=== PATIENT | female | born 1980 | race Caucasian/White ===

== ENCOUNTER 2018-05-16 06:35 | Day surgery (SDC) | payer BC ==
[2018-05-09 14:48] LABS: BUN Blood Urea Nitrogen 9 mg/dL (7-18); Bicarbonate 26 mmol/L (21-32); Glucose Level 88 mg/dL (74-106); Potassium 3.6 mmol/L (3.5-5.1); Sodium Level 142 mmol/L (136-145)
[2018-05-09 14:52] LABS: Absolute Lymphocytes (CBC) 2.1 K/uL (0.7-4.9); Absolute Monocytes 0.6 K/uL (0.1-1.3); Absolute Neutrophil 4.9 K/uL (1.8-8.0); Basophils % 0.4 % (0-1.3); Eosinophils % 2.6 % (0-4.4); Hematocrit 36.3 % (36.0-45.0); Lymphocytes % 26.8 % (15.3-44.8); MCH 24.4 pg (27.0-35.0); MCV 73.6 fL (80-100); MPV 10.5 fL (7.6-11.3); Monocytes % 7.7 % (3.3-12.3); RBC Red Blood Cell Count 4.92 M/uL (3.86-4.86)
--- NOTE | 2018-05-15 15:43 | PREOPHP ---
Date of Admission: 05/09/2018 PODIATRIC HISTORY AND PHYSICAL History Of Present Illness: This patient presented to my office months ago with a chief complaint of pain underneath the right big toe joint. No history of trauma. The patient was diagnosed with a fr acture of the tibial sesamoid based on MRI findings and then later x-ray findings. The patient has u ndergone dispersion of the area, been in a walking boot for approximately 3 months, use of a bone sti mulator for approximately 3 months, all without relief of symptoms. Patient has also had a steroid i njection as a last resort, which gave no relief. The patient requests surgical management. Pain is at first MPJ right foot, tibial sesamoid, sore and throbbing in nature, moderate in severity. It beg an approximately a year ago. The pain is worse with activity, improved with rest. Medications: Include Duexis as needed and Actigall 300 mg. Allergies: ALLERGIES ARE TO LATEX, LEVAQUIN, PHENERGAN, VANCOMYCIN. Medical History: Unremarkable. Past Surgical History: Includes a laparoscopic cholecystectomy in 2006 and the name of the procedure is Veronica-en-Y; hepaticojejunostomy in 2006, 2013, and 2014 due to failure of the subsequent procedure s due to complications after gallbladder surgery. Family History: Includes heart disease and hypertension in her mother and father. Social History: Patient denies cigarettes and alcohol use and IV drug use. Physical Examination: Vital Signs: Patient is 165 pounds, height 5 feet 4 inches. General Appearance: The patient is healthy, well developed, well nourished, well oriented x3. Vascular: Evaluation reveals dorsalis pedis and posterior tibial pulses to be 4/4 bilaterally. Capi llary refill time is less than 3 seconds. Temperature gradient is within normal limits. There is no DVT or complaints or signs. Musculoskeletal Evaluation: Foot assessment, there is a rigid cavus foot type bilaterally, subtalar joint shows increased varus bilaterally and a forefoot adductus bilaterally. Equinus is noted to be -5 bilaterally. Digits are within normal limits on both feet. Muscle and knee assessment and testin g and ankle assessment reveals normal range of motion, equal and symmetrical bilaterally. Big toe kelli int evaluation reveals big toes in good alignment with minimal medial enlargement. There is no redne ss, swelling, or temp; however, there is mild tenderness on palpation of the tibial sesamoid, specifi chris plantar, right foot. Skin Evaluation: Reveals no rash, ulcer, tumor, or contracture. Neurologic Evaluation: Reveals deep tendon reflexes to be 5/5 for the patella and Achilles bilateral ly. Vibratory and sharp dull sensation within normal limits. Diagnosis: Tibial sesamoid fracture, right foot with a nonunion. X-ray evaluation shows a separatio n of the tibial sesamoid, not initially apparent on the original x-rays, and MRI results indicate a f racture of the tibial sesamoid. The patient has undergone conservative treatment including a BK walk er, dispersion padding, and a bone stimulator to try to heal the fractured sesamoid, all to no avail, and the patient is now ready for surgical management due to failure of conservative care. The patie nt is aware that they will be nonweightbearing for 2 weeks with crutches. A Roll-A-Bout was offered and patient declined. The patient will be in a walking boot after the 2-week nonweightbearing period for approximately for 4 weeks. The patient understands the risk of tendon damage and capsular damag e to the first MPJ and the risk of developing a bunion deformity having been stressed to the patient due to removal of the tibial sesamoid. The patient has also been told she will need to be off work f or approximately 6 weeks. Physical therapy was also discussed postoperatively for any stiffness in t he big toe joint. The patient understands risks, benefits, and alternatives to the above-mentioned p rocedure including but not limited to the risk of pain, swelling, numbness, stiffness, infection, non healing of skin along with prominence of the pain due to capsular adhesions and/or capsular damage. The patient requests surgical management. Preoperative labs have been performed. Medical H and P wi ll be completed by Anesthesia. Surgery is scheduled for May 16, 2018 at [facility]. JAY Voice ID: [id number]
--- OUTSIDE RECORDS SUMMARY | 2018-05-16 06:39 | XMS REPORT | Clinical Summary ---
:1980 Author Organization [facility] Address [address] [place] [address] Care Team Providers Name Role Phone AmenaBurciagaMelinda camarillo Primary Care Provider Zeus Selby Unavailable Allergies Active Allergy Reactions Severity Noted Date Comments Adhesive Rash Low 02/02/2014 Latex Rash Low 01/16/2014 Promethazine Anaphylaxis High 11/15/2013 Vancomycin Analogues Rash Low 02/25/2015 welps. Medications Medication Sig Dispensed Refills Start End Date Status Date pantoprazole (PROTONIX) Take 1 tablet (40 30 tablet 1 Active 40 MG tablet mg total) by mouth 5 daily. ursodiol (ACTIGALL) 300 Take 1 capsule (300 90 capsule 11 Active mg capsuleIndications: mg total) by mouth 7 Injury of bile duct, 3 (three) times subsequent encounter, daily. Elevated LFTs ursodiol (ACTIGALL) 500 Take 1 tablet (500 270 tablet 3 Active MG tabletIndications: mg total) by mouth 7 18 Elevated LFTs, Injury 3 (three) times of bile duct, daily. subsequent encounter IBUPROFEN/FAMOTIDINE Take by mouth. 0 Active (DUEXIS ORAL) medroxyPROGESTERone Inject 150 mg 0 Active (DEPO-PROVERA) 150 intramuscularly mg/mL injection every 3 (three) months. VILAZODONE HCL (VIIBRYD Take by mouth. 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 The existing catheter biliary catheter placed proximal to the anastomosis for 2 weeks without symptoms was discontinued. The referring physician was notified prior to removing the biliary tube. Bile duct abnormality 04/15/2015 Lower urinary tract infectious disease 04/07/2015 Overview: UPDATED BY ICD10 SNOMED/IMO UPDATES Cholangiolitis 03/06/2015 RUQ abdominal pain 02/08/2015 Nausea 12/01/2014 Right upper quadrant abdominal pain 12/01/2014 Fever and chills 12/01/2014 Leukocytosis 12/01/2014 Injury of bile duct, subsequent encounter 11/22/2014 Intrahepatic bile duct dilation 11/04/2014 Biliary obstruction 04/23/2014 GERD (gastroesophageal reflux disease) 02/05/2014 Insomnia 02/05/2014 Abdominal pain 01/28/2014 Elevated LFTs 11/08/2013 Injury of bile duct 09/28/2013 Last Assessment & Plan: 30 yr old female s/p Veronica-en-Y hepaticojejunostomy in 2006 following cholecystectomy. Revision of Veronica- en- Y hepaticojejunostomy on 04/23/2014. She is doing well since her previous clinic visit and denies any symptoms. Encounters Date Type Specialty Care Team Description 01/13/2018 Telephone Hepatology shandra Seth MA 12/22/2017 Telephone Transplant Paola Danielle, Labs Only RN 12/22/2017 Orders Only Transplant Paola Danielle, Injury of bile duct, subsequent encounter (Primary Dx); RN Elevated LFTs 09/29/2017 Telephone Hepatology Paola Danielle, Results RN 09/23/2017 Telephone Hepatology Paola Danielle, Labs Only RN 09/23/2017 Orders Only HepatPaola Soni, Injury of bile duct, subsequent encounter (Primary Dx); RN Elevated LFTs 06/16/2017 Office Visit Transplant Lionel Cohen Elevated LFTs (Primary Dx); Hepatology MD Gilbert Injury of bile duct, subsequent encounter 06/16/2017 Telephone Hepatology Dai Bravo Results MARTA Gilliam 05/30/2017 Telephone Hepatology Dai Bravo Results Tawana, MARTA 05/24/2017 Hospital Encounter Radiology Lionel Cohen Elevated LFTs; MD Gilbert Injury of bile duct, subsequent encounter 05/18/2017 Telephone Hepatology Dai Bravo Results MARTA Gilliam 05/17/2017 Telephone Hepatology Dai Bravo Results MARTA Gilliam 05/17/2017 Orders Only Hepatology Dai Bravo Elevated LFTs (Primary Dx) ; MARTA Gilliam Injury of bile duct, subsequent encounter 05/17/2017 Telephone Hepatology Paola Danielle, Appointment RN after 05/15/2017 Family History Medical History Relation Name Comments Asthma Brother Heart disease Father Hypertension Father Diabetes Mother Hypertension Mother Relation Name Status Comments Brother Father Mother Social History Tobacco Use Types Packs/Day Years Used Date Never Smoker Smokeless Tobacco: Never Used Alcohol Use Drinks/Week oz/Week Comments No Sex Assigned at Date Recorded Not on file Job Start Date Occupation Industry Not on file Not on file Not on file Travel History Travel Start Travel End No recent travel history available. Last Filed Vital Signs Vital Sign Reading Time Taken Blood Pressure 133/74 06/16/2017 10:08 AM APPLIANCE COUNSELOR Pulse 85 06/16/2017 10:08 AM APPLIANCE COUNSELOR Temperature 36.2 C (97.1 F) 06/16/2017 10:08 AM APPLIANCE COUNSELOR Respiratory Rate 16 06/16/2017 10:08 AM APPLIANCE COUNSELOR Oxygen Saturation 99% 06/16/2017 10:08 AM APPLIANCE COUNSELOR Inhaled Oxygen Concentration - - Weight 74.7 kg (164 lb 11.2 oz) 06/16/2017 10:08 AM APPLIANCE COUNSELOR Height 162.6 cm (5' 4") 06/16/2017 10:08 AM APPLIANCE COUNSELOR Body Mass Index 28.27 06/16/2017 10:08 AM APPLIANCE COUNSELOR Plan of Treatment Health Maintenance Due Date Last Done Comments INFLUENZA VACCINE 04/03/2018 Procedures Procedure Name Priority Date/Time Associated Comments Diagnosis HEPATIC FUNCTION Routine 12/31/2017 11:45 Injury of bile Results for this PANEL AM CDT duct, subsequent procedure are in encounter the results Elevated LFTs section. BASIC METABOLIC PANEL Routine 12/31/2017 11:45 Injury of bile Results for this (7) AM CDT duct, subsequent procedure are in encounter the results Elevated LFTs section. CBC W/PLT COUNT & Routine 12/31/2017 11:45 Injury of bile Results for this AUTO DIFFERENTIAL AM CDT duct, subsequent procedure are in encounter the results Elevated LFTs section. GAMMA GLUTAMYL Routine 12/31/2017 11:45 Injury of bile Results for this TRANSFERASE (GGT) AM CDT duct, subsequent procedure are in encounter the results Elevated LFTs section. GAMMA GLUTAMYL Routine 09/28/2017 1:57 Injury of bile Results for this TRANSFERASE (GGT) PM CDT duct, subsequent procedure are in encounter the results Elevated LFTs section. CBC W/PLT COUNT & Routine 09/28/2017 1:57 Injury of bile Results for this AUTO DIFFERENTIAL PM CDT duct, subsequent procedure are in encounter the results Elevated LFTs section. HEPATIC FUNCTION Routine 09/28/2017 1:57 Injury of bile Results for this PANEL PM CDT duct, subsequent procedure are in encounter the results Elevated LFTs section. BASIC METABOLIC PANEL Routine 09/28/2017 1:57 Injury of bile Results for this (7) PM CDT duct, subsequent procedure are in encounter the results Elevated LFTs section. CBC W/PLT COUNT & Routine 06/16/2017 10:54 Elevated LFTs Results for this AUTO DIFFERENTIAL AM APPLIANCE COUNSELOR Injury of bile procedure are in duct, subsequent the results encounter section. GAMMA GLUTAMYL Routine 06/16/2017 10:54 Elevated LFTs Results for this TRANSFERASE (GGT) AM APPLIANCE COUNSELOR Injury of bile procedure are in duct, subsequent the results encounter section. PROTHROMBIN TIME/INR Routine 06/16/2017 10:54 Elevated LFTs Results for this AM APPLIANCE COUNSELOR Injury of bile procedure are in duct, subsequent the results encounter section. CBC W/PLT COUNT & Routine 06/16/2017 10:54 Elevated LFTs Results for this AUTO DIFFERENTIAL AM APPLIANCE COUNSELOR Injury of bile procedure are in duct, subsequent the results encounter section. HEPATIC FUNCTION Routine 06/16/2017 10:54 Elevated LFTs Results for this PANEL AM APPLIANCE COUNSELOR Injury of bile procedure are in duct, subsequent the results encounter section. BASIC METABOLIC PANEL Routine 06/16/2017 10:54 Elevated LFTs Results for this (7) AM APPLIANCE COUNSELOR Injury of bile procedure are in duct, subsequent the results encounter section. MR ABDOMEN Routine 05/24/2017 11:21 Elevated LFTs Results for this WITH/WITHOUT IV AM APPLIANCE COUNSELOR Injury of bile procedure are in CONTRAST duct, subsequent the results encounter section. GAMMA GLUTAMYL Routine 05/17/2017 4:51 Elevated LFTs Results for this TRANSFERASE (GGT) PM APPLIANCE COUNSELOR Injury of bile procedure are in duct, subsequent the results encounter section. PROTHROMBIN TIME/INR Routine 05/17/2017 4:51 Elevated LFTs Results for this PM APPLIANCE COUNSELOR Injury of bile procedure are in duct, subsequent the results encounter section. CBC W/PLT COUNT & Routine 05/17/2017 4:51 Elevated LFTs Results for this AUTO DIFFERENTIAL PM APPLIANCE COUNSELOR Injury of bile procedure are in duct, subsequent the results encounter section. HEPATIC FUNCTION Routine 05/17/2017 4:51 Elevated LFTs Results for this PANEL PM APPLIANCE COUNSELOR Injury of bile procedure are in duct, subsequent the results encounter section. BASIC METABOLIC PANEL Routine 05/17/2017 4:51 Elevated LFTs Results for this (7) PM APPLIANCE COUNSELOR Injury of bile procedure are in duct, subsequent the results encounter section. after 05/15/2017 Results CBC with platelet count + automated diff (12/31/2017 11:45 AM CDT)Only the most recent of3 resultswithin the time period is included. WBC 6.9 3.8 - 10.8 Thousand/uL [facility] RBC 4.56 3.80 - 5.10 Million/uL [facility] Hemoglobin 11.0 (L) 11.7 - 15.5 g/dL [facility] Hematocrit 34.2 (L) 35.0 - 45.0 % [facility] MCV 75.0 (L) 80.0 - 100.0 fL [facility] MCH 24.1 (L) 27.0 - 33.0 pg [facility] MCHC 32.2 32.0 - 36.0 g/dL [facility] RDW 14.3 11.0 - 15.0 % [facility] Platelets 206 140 - 400 Thousand/uL [facility] MPV 12.4 7.5 - 12.5 fL [facility] # Neutros 4,292 1,500 - 7,800 cells/uL [facility] # Lymphs 1,918 850 - 3,900 cells/uL [facility] # Monos 490 200 - 950 cells/uL [facility] # Eos 159 15 - 500 cells/uL [facility] # Baso 41 0 - 200 cells/uL [facility] % Neutros 62.2 % [facility] % Lymphs 27.8 % [facility] % Monos 7.1 % [facility] % Eos 2.3 % [facility] % Baso 0.6 % [facility] Specimen Blood Narrative Performed At FASTING:NO [facility] FASTING: NO Resulting Agency Comment Performing Organization Information: Site ID: [id number] Name: [facility] Address: [address] [place] [phone] Director: Libertad Nick Performing Organization Address [facility] Phone Number [facility] [address] [place] [address] [facility] Gamma Glutamyl Transferase (GGT) (12/31/2017 11:45 AM CDT)Only the most recent of4 resultswithin the time period is included. GGT 90 (H) 3 - 50 U/L [facility] Specimen Blood Narrative Performed At FASTING:NO [facility] FASTING: NO Resulting Agency Comment Performing Organization Information: Site ID: [id number] Name: [facility] Address: [address] [place] [phone] Director: Libertad Nick Performing Organization Address [facility] Phone Number [facility] [address] [place] [address] [facility] Hepatic function panel (12/31/2017 11:45 AM CDT)Only the most recent of4 resultswithin the time period is included. Protein, Total, Serum 6.9 6.1 - 8.1 g/dL [facility] Albumin 3.9 3.6 - 5.1 g/dL [facility] GLOBULIN ([facility]) 3.0 1.9 - 3.7 g/dL (calc) [facility] Albumin Globulin Ratio 1.3 1.0 - 2.5 (calc) [facility] Bilirubin, Total 0.4 0.2 - 1.2 mg/dL [facility] Bilirubin, Direct 0.1 < OR=0.2 mg/dL [facility] Bilirubin, Indirect 0.3 0.2 - 1.2 mg/dL (calc) [facility] Alkaline Phosphatase, S 94 33 - 115 U/L [facility] AST (SGOT) 19 10 - 30 U/L [facility] ALT (SGPT) 20 6 - 29 U/L [facility] Specimen Blood Narrative Performed At FASTING:NO [facility] FASTING: NO Resulting Agency Comment Performing Organization Information: Site ID: [id number] Name: [facility] Address: [address] [place] [phone] Director: Libertad Nick Performing Organization Address [facility] Phone Number [facility] [address] [place] [address] [facility] Basic Metabolic Panel (12/31/2017 11:45 AM CDT)Only the most recent of4 resultswithin the time period is included. Glucose 116 65 - 139 mg/dL [facility] Comment: Non-fasting reference interval BUN 8 7 - 25 mg/dL [facility] Creatinine 0.77 0.50 - 1.10 mg/dL [facility] eGFR If NonAfricn Am 99 > OR=60 mL/min/1.73m2 [facility] eGFR If Africn Am 115 > OR=60 mL/min/1.73m2 [facility] BUN/Creatinine Ratio NOT APPLICABLE 6 - 22 (calc) [facility] Sodium 140 135 - 146 mmol/L [facility] Potassium, Serum 3.7 3.5 - 5.3 mmol/L [facility] Chloride 107 98 - 110 mmol/L [facility] Carbon Dioxide, Total 25 20 - 31 mmol/L [facility] Calcium, Serum 9.1 8.6 - 10.2 mg/dL [facility] Specimen Blood Narrative Performed At FASTING:NO [facility] FASTING: NO Resulting Agency Comment Performing Organization Information: Site ID: [id number] Name: [facility] Address: [address] [place] [phone] Director: Libertad Nick Performing Organization Address City/State/Zipcode Phone Number [facility] [address] [place] [address] [facility] CBC with platelet count + automated diff (06/16/2017 10:54 AM APPLIANCE COUNSELOR) WBC 7.7 3.5 - 10.5 K/L [facility] RBC 5.02 3.93 - 5.22 M/L [facility] Hemoglobin 13.6 11.2 - 15.7 GM/DL [facility] Hematocrit 43.1 34.1 - 44.9 % [facility] MCV 85.9 79.4 - 94.8 fL [facility] MCH 27.1 25.6 - 32.2 pg [facility] MCHC 31.6 (L) 32.2 - 35.5 GM/DL [facility] RDW 13.9 11.7 - 14.4 % [facility] Platelets 208 150 - 450 K/CU MM [facility] MPV 12.5 (H) 9.4 - 12.3 fL [facility] nRBC 0 0 - 0 /100 WBC [facility] % Neutros 63 % [facility] % Lymphs 26 % [facility] % Monos 7 % [facility] % Eos 3 % [facility] % Baso 1 % [facility] # Neutros 4.89 1.56 - 6.13 K/L [facility] # Lymphs 2.01 1.18 - 3.74 K/L [facility] # Monos 0.55 (H) 0.24 - 0.36 K/L [facility] # Eos 0.20 0.04 - 0.36 K/L [facility] # Baso 0.04 0.01 - 0.08 K/L [facility] Immature Granulocytes-Relative 0 0 - 1 % [facility] Specimen Blood Performing Organization Address City/State/Zipcode Phone Number [facility] [address] [place] [address] [phone] CENTER Pro-time/INR (06/16/2017 10:54 AM APPLIANCE COUNSELOR)Only the most recent of2 resultswithin the time period is included. Protime 13.3 11.7 - 14.7 seconds [facility] INR 1.0 <=5.9 [facility] Specimen Blood Narrative Performed At [facility] RECOMMENDED COUMADIN/WARFARIN INR THERAPY RANGES STANDARD DOSE: 2.0 - 3.0 Includes: PROPHYLAXIS for venous thrombosis, systemic embolization; TREATMENT for venous thrombosis and/or pulmonary embolus. HIGH RISK: Target INR is 2.5-3.5 for patients with mechanical heart valves. Performing Organization Address City/State/Zipcode Phone Number [facility] [address] [place] [address] CENTER MR abdomen with/without IV contrast (05/24/2017 11:21 AM APPLIANCE COUNSELOR) Narrative Performed At FINAL REPORT [facility] MRI OF THE ABDOMEN with MRCP CLINICAL HISTORY: Bile duct injury TECHNIQUE: Multiplanar and multisequence MR images of the abdomen are obtained before and after intravenous contrast administration. Contrast is administered to evaluate the solid organs. Multiplanar and multisequence MR images of the biliary system are obtained, with dedicated MRCP protocol and images. In addition, 3 dimensional reformatted images of the biliary system are obtained to evaluate the biliary anatomy. COMPARISON: MRI of the abdomen from 07/21/2016 DISCUSSION: LIVER: No suspicious liver lesion. Liver contour is smooth. Mild diffuse hepatic steatosis. BILIARY: No biliary ductal dilation. Findings of prior hepaticojejunostomy. Gallbladder is absent. PANCREAS: No pancreatic ductal dilation. No solid pancreatic lesion. SPLEEN: No splenomegaly. ADRENALS: No nodule. KIDNEYS: No hydronephrosis or hydroureter. No solid renal lesion. PERITONEUM/RETROPERITONEUM: No upper abdominal ascites. LYMPH NODES: No upper abdominal lymphadenopathy. VESSELS: Abdominal aorta is normal in caliber. Main portal vein is patent measuring 1.1 cm. BONES AND SOFT TISSUES: No destructive osseous lesion. IMPRESSION: Expected postsurgical changes related to hepaticojejunostomy and cholecystectomy. No biliary ductal dilation. Mild diffuse hepatic steatosis. Signed: Andres Gilbert MD Report Verified Date/Time:05/24/2017 13:36:44 Reading Location: [address] Radiology Reading Room Procedure Note Interface, External Ris In - 05/24/2017 1:38 PM APPLIANCE COUNSELOR FINAL REPORT MRI OF THE ABDOMEN with MRCP CLINICAL HISTORY: Bile duct injury TECHNIQUE: Multiplanar and multisequence MR images of the abdomen are obtained before and after intravenous contrast administration. Contrast is administered to evaluate the solid organs. Multiplanar and multisequence MR images of the biliary system are obtained, with dedicated MRCP protocol and images. In addition, 3 dimensional reformatted images of the biliary system are obtained to evaluate the biliary anatomy. COMPARISON: MRI of the abdomen from 07/21/2016 DISCUSSION: LIVER: No suspicious liver lesion. Liver contour is smooth. Mild diffuse hepatic steatosis. BILIARY: No biliary ductal dilation. Findings of prior hepaticojejunostomy. Gallbladder is absent. PANCREAS: No pancreatic ductal dilation. No solid pancreatic lesion. SPLEEN: No splenomegaly. ADRENALS: No nodule. KIDNEYS: No hydronephrosis or hydroureter. No solid renal lesion. PERITONEUM/RETROPERITONEUM: No upper abdominal ascites. LYMPH NODES: No upper abdominal lymphadenopathy. VESSELS: Abdominal aorta is normal in caliber. Main portal vein is patent measuring 1.1 cm. BONES AND SOFT TISSUES: No destructive osseous lesion. IMPRESSION: Expected postsurgical changes related to hepaticojejunostomy and cholecystectomy. No biliary ductal dilation. Mild diffuse hepatic steatosis. Signed: Andres Gilbert MD Report Verified Date/Time: 05/24/2017 13:36:44 Reading Location: [address] Radiology Reading Room Performing Organization Address City/State/Zipcode Phone Number GE RIS after 05/15/2017 Insurance Payer Benefit Plan / Subscriber ID Type Phone Address Group BLUE [employer]OSS/[employer]UE [employer] OS xxxxxxxxxxxx PPO [phone] [address] SHIELD POS/PP[place] [address] Advance Directives For more information, please contact:[address] [phone] Code Status Date Activated Date Inactivated Comments Full Code 04/15/2015 1:10 PM 04/22/2015 6:44 PM This code status was determined by: Patient Full Code 12/01/2014 5:40 PM 12/08/2014 2:54 PM This code status was determined by: Patient Full Code 11/23/2014 1:53 AM 11/23/2014 4:42 PM This code status was determined by: Patient Full Code 04/23/2014 6:42 PM 04/30/2014 3:23 PM This code status was determined by: Patient Full Code 02/21/2014 6:40 PM 02/21/2014 10:43 PM This code status was determined by: Patient
--- OUTSIDE RECORDS SUMMARY | 2018-05-16 06:40 | XMS REPORT ---
:[address] [facility] Address [address] [place] [address] Care Team Providers Name Role Phone KENISHA FLORES Unavailable Unavailable Problems This patient has no known problems. Allergies, Adverse Reactions, Alerts This patient has no known allergies or adverse reactions. Medications This patient has no known medications. Results Test Description Test Time Test Comments Text Results Atomic Results Result Comments HEPATIC FUNCTION PANEL 2017-06-16 13:57:00 Test Item Value Reference Range Comments TOTAL PROTEIN (BEAKER) (test ifii=739) 8.3 gm/dL 6.0-8.3 ALBUMIN (BEAKER) (test rizv=2842) 4.3 g/dL 3.5-5.0 BILIRUBIN TOTAL (BEAKER) (test yijg=957) 0.4 mg/dL 0.2-1.2 BILIRUBIN DIRECT (BEAKER) (test seqn=682) 0.2 mg/dL 0.1-0.5 ALKALINE PHOSPHATASE (BEAKER) (test oqzj=419) 140 U/L 40-150 AST (SGOT) (BEAKER) (test aoeb=078) 26 U/L 5-34 ALT (SGPT) (BEAKER) (test jtcc=347) 33 U/L 6-55 BASIC METABOLIC [id number] 13:57:00 Test Item Value Reference Range Comments SODIUM (BEAKER) (test 142 meq/L 136-145 teyr=178) POTASSIUM (BEAKER) (test 3.7 meq/L 3.5-5.1 zeaq=854) CHLORIDE (BEAKER) (test 110 meq/L 98-107 xhao=438) CO2 (BEAKER) (test 23 meq/L 22-29 wavo=290) BLOOD UREA NITROGEN 12 mg/dL 7-21 (BEAKER) (test yisv=834) CREATININE (BEAKER) (test 0.76 mg/dL 0.57-1.25 raeu=731) GLUCOSE RANDOM (BEAKER) 68 mg/dL 70-105 (test bcmh=433) CALCIUM (BEAKER) (test 9.2 mg/dL 8.4-10.2 vlba=535) EGFR (BEAKER) (test 86 mL/min/1.73 sq m ESTIMATED GFR IS NOT czuq=1208) ACCURATE CREATININE CLEARANCE IN PREDICTING GLOMERULAR FILTRATION RATE. ESTIMATED GFR IS NOT APPLICABLE FOR DIALYSIS PATIENTS. GAMMA GLUTAMYL TRANSFERASE (GGT)2017-06-16 13:57:00 Test Item Value Reference Range Comments GAMMA GLUTAMYL TRANSFERASE (BEAKER) (test dfcb=581) 106 U/L 9-64 PROTHROMBIN TIME/[id number] 13:02:00 Test Item Value Reference Range Comments PROTIME (BEAKER) (test ibum=239) 13.3 seconds 11.7-14.7 INR (BEAKER) (test qpik=998) 1.0 <=5.9 RECOMMENDED COUMADIN/WARFARIN INR THERAPY RANGESSTANDARD DOSE: 2.0 - 3.0 Includes: PROPHYLAXIS forvenous thrombosis, systemic embolization; TREATMENT for venous thrombosis and/or pulmonary embolus.HIGH RISK: Target INR is 2.5-3.5 for patients with mechanical heart valves.CBC W/PLT COUNT & AUTO [id number] 12:58:00 Test Item Value Reference Range Comments WHITE BLOOD CELL COUNT (BEAKER) (test qnbc=195) 7.7 K/ L 3.5-10.5 RED BLOOD CELL COUNT (BEAKER) (test oxhh=201) 5.02 M/ L 3.93-5.22 HEMOGLOBIN (BEAKER) (test vghf=955) 13.6 GM/DL 11.2-15.7 HEMATOCRIT (BEAKER) (test mkga=560) 43.1 % 34.1-44.9 MEAN CORPUSCULAR VOLUME (BEAKER) (test slze=511) 85.9 fL 79.4-94.8 MEAN CORPUSCULAR HEMOGLOBIN (BEAKER) (test 27.1 pg 25.6-32.2 akrn=720) MEAN CORPUSCULAR HEMOGLOBIN CONC (BEAKER) (test 31.6 GM/DL 32.2-35.5 ytob=706) RED CELL DISTRIBUTION WIDTH (BEAKER) (test 13.9 % 11.7-14.4 kahc=083) PLATELET COUNT (BEAKER) (test xhwf=140) 208 K/CU MM 150-450 MEAN PLATELET VOLUME (BEAKER) (test lgmv=053) 12.5 fL 9.4-12.3 NUCLEATED RED BLOOD CELLS (BEAKER) (test 0 /100 WBC 0-0 lcvb=010) NEUTROPHILS RELATIVE PERCENT (BEAKER) (test 63 % uvfa=276) LYMPHOCYTES RELATIVE PERCENT (BEAKER) (test 26 % adkz=203) MONOCYTES RELATIVE PERCENT (BEAKER) (test 7 % ifxt=259) EOSINOPHILS RELATIVE PERCENT (BEAKER) (test 3 % yfga=406) BASOPHILS RELATIVE PERCENT (BEAKER) (test 1 % pbki=366) NEUTROPHILS ABSOLUTE COUNT (BEAKER) (test 4.89 K/ L 1.56-6.13 nauj=005) LYMPHOCYTES ABSOLUTE COUNT (BEAKER) (test 2.01 K/ L 1.18-3.74 aiug=669) MONOCYTES ABSOLUTE COUNT (BEAKER) (test 0.55 K/ L 0.24-0.36 lwhu=467) EOSINOPHILS ABSOLUTE COUNT (BEAKER) (test 0.20 K/ L 0.04-0.36 ptkz=239) BASOPHILS ABSOLUTE COUNT (BEAKER) (test 0.04 K/ L 0.01-0.08 eosz=106) IMMATURE GRANULOCYTES-RELATIVE PERCENT (BEAKER) 0 % 0-1 (test lqlw=4315) MR, ABDOMEN, [id number] 13:36:00FINAL REPORT MRI OF THE ABDOMEN with MRCP [...] Liver contour is smooth. Mild diffuse hepatic steatosis.BILIARY: No biliary ductal dilation. Findings of prior hepaticojejunostomy. Gallbladder is absent.PANCREAS: No pancreatic ductal dilation. No solid pancreatic lesion.SPLEEN: No splenomegaly. ADRENALS: No nodule.KIDNEYS: No hydronephrosis orhydroureter. No solid renal lesion. PERITONEUM/RETROPERITONEUM: No upper abdominal ascites.LYMPH NODES: No upper abdominal lymphadenopathy. VESSELS: Abdominal aorta is normal in caliber. Main portal vein is patent measuring 1.1 cm. BONES AND SOFT TISSUES: No destructive osseous lesion. IMPRESSION: Expected postsurgical changes related to hepaticojejunostomy and cholecystectomy. No biliary ductal dilation. Mild diffuse hepatic steatosis. Signed: Andres Gilbert MDReport Verified Date/Time: 13:36:44 Reading Location: [address] Radiology Reading Room
[2018-05-16] MEDS ORDERED: MIDAZOLAM HCL 2 MG/2 ML INJ ONE (06:55)
[2018-05-16] MEDS ORDERED: PROPOFOL 200 MG/20 ML VIAL IV ONE (06:55)
[2018-05-16] MEDS ORDERED: LIDOCAINE 2% MPF 5 ML VIAL ONE (06:56)
[2018-05-16] MEDS ORDERED: FENTANYL CITR 100 MCG/2 ML ONE (06:56)
[2018-05-16 06:59] LABS: Specific Gravity 1.025 (1.005-1.030)
[2018-05-16] MEDS ORDERED: Ringers Lactate 1,000 ML IV ONE (07:01)
[2018-05-16] MEDS ORDERED: CEFAZOLIN/SWI 1gm 1 GM/10 ML SYR ONE (07:01)
[2018-05-16] MEDS ORDERED: LIDOCAINE 1% MPF 30 ML VIAL ONE (07:24)
[2018-05-16] MEDS: MEPERIDINE HCL 50 MG/ML AMP ONE ×4 (08:45→09:06)
[2018-05-16] MEDS ORDERED: ONDANSETRON 4 MG/2 ML VIAL ONE (09:00)
--- NOTE | 2018-05-16 09:01 | RAD REPORT ---
EXAM DESCRIPTION: RAD - Foot Right 2 View - 05/16/2018 8:48 am CLINICAL HISTORY: Right foot pain FINDINGS: Sesamoid bone in the first MTP region has been resected. No fracture or dislocation is seen. Two-view series obtained
[2018-05-16] MEDS ORDERED: HYDROCODONE/APAP 5/325 MG TAB ONE (09:51)
[2018-05-16] MEDS ORDERED: ONDANSETRON 4 MG (ODT) TAB ONE (11:07)
--- NOTE | 2018-05-16 20:31 | DS ---
Date of Discharge: 05/16/2018 Preoperative Diagnosis: Fracture, nonhealing tibial sesamoid right foot. Postoperative Diagnosis: Fracture, nonhealing tibial sesamoid right foot. Anesthesia: General. Procedure: The patient tolerated the procedure and anesthesia well. A 10 cc of 0.5% Marcaine plain were injected postoperatively following conclusion of the procedure. This was performed as a [facility] ock, a standard for bunion surgery. The patient may be discharged to home in satisfactory condition per anesthesia guidelines. The patient will remain nonweightbearing on the right foot. Crutches wer e dispensed with PT to teach 3 point gait. The patient has emergency phone number as well as postop instructions in a written form and pain medication. JAY Voice ID: [id number] Report ID: [id number]
--- NOTE | 2018-05-16 20:31 | OP ---
Date of Procedure: 05/16/2018 Surgeon: Lauro Guzmán DPM Preoperative Diagnosis: Nonunion fracture of tibial sesamoid, right foot. Postoperative Diagnosis: Nonunion fracture of tibial sesamoid, right foot. Procedure: Excision of tibial sesamoid, right foot. Anesthesia: General. Procedure In Detail: The patient was brought into the operating room, placed on the operating room t able in supine position, and the foot was prepped and draped in usual sterile manner. Attention was then directed to the medial aspect of the first MPJ, where a 4 cm medial incision was made midway bet ween the dorsal nerve branch and the plantar nerve branch. The incision was deepened via sharp and b kaela dissection, avoiding all neurovascular structures. None were encountered. The capsular tissue w as then identified as well as the adductor muscle, the flexor hallucis brevis and flexor hallucis joseph waqas through blunt dissection. An incision was made 3 cm in length medially on the capsule and dissec jocelyne free from its bony attachments. The tibial sesamoid was identified. Utilizing a rounded Mitchells blade the tibial sesamoid was grasped and utilizing a delicate dissection, the tibial sesamoid was fr eed from its underlying and surrounding tissue. It was free plantarly without disruption of the plan tar capsule structure or any tendinous structures proximally, laterally, and distally. The tibial se samoid was removed. There seemed to be a fibrotic fracture line mid sesamoid transversely. It was s ent for pathology report. The tissues were then inspected. The flexor hallucis longus, flexor hallu cis brevis tendon were identified intact and undisturbed. The capsular tissue plantarly was minimall y disturbed. The area was flushed copious amounts of sterile saline. The plantar area was sutured w ith 2-0 Vicryl suture. Medial capsular tissue was sutured with 2-0 Vicryl suture. The range of quoc on was seen to be rectus as prior to surgery. The area was again flushed with copious amounts of darian rile saline. Skin was closed utilizing 4-0 Prolene horizontal mattress suture. The area is dressed with Adaptic, dry sterile gauze, dry sterile Marta, Kerlix, and an Jak bandage. Pneumatic ankle tour niquet was deflated and capillary return was seen to be instantaneous to all digits. The patient was sent to recovery in satisfactory condition. JAY Voice ID: [id number] Report ID: [id number]
== END 2018-05-16 11:15 | disposition home or self-care (01) ==
LOC: OR 06:35
PROVIDERS: ATTEND Podiatrist
PROC: 0QBN0ZZ Excision of Right Metatarsal, Open Approach (ICD-10-PCS; principal; 2018-05-16 07:30)
DX: S92.811K Other fracture of right foot, subsequent encounter for fracture with nonunion (principal); Z91.040 Latex allergy status; Z88.3 Allergy status to other anti-infective agents; Z88.8 Allergy status to other drugs, medicaments and biological substances; Z82.49 Family history of ischemic heart disease and other diseases of the circulatory system
CPT/HCPCS: 36415; 80048; 81025; 85025; 88304; 88311; 97163; J0690; J2175; J2250; J2405; J2704; J3010